=== PATIENT | male | born 1960 | race Caucasian/White ===

== ENCOUNTER → 2020-10-06 12:59 | Outpatient (CLI) | payer OTHER, SELFPAY ==
--- NOTE | 2020-10-06 13:06 | DI.CT.S_ITS ---
PROCEDURE: CT ABDOMEN PELVIS W CON INDICATIONS: Lower abdominal pain, unspecified TECHNIQUE: After the administration of oral and intravenous contrast, axial sections were acquired from the lung bases to the pubic symphysis. Coronal and sagittal reformats were performed. For radiation dose reduction, the following was used: automated exposure control, adjustment of mA and/or kV according to patient size. COMPARISON:None. FINDINGS: Image quality: Excellent. Lung bases: Unremarkable. Heart: No significant findings. ABDOMEN: Liver: Unremarkable. Gallbladder: Is grossly unremarkable Biliary ducts: Unremarkable. Pancreas: Unremarkable. Spleen: Unremarkable. Adrenal Glands: Unremarkable. Kidneys and Ureters: Unremarkable. Stomach and Bowel: Stomach, small bowel loops, and colon are unremarkable. Normal appendix. Peritoneum: No abnormal intraperitoneal fluid. No free air. Ventral Wall: No hernia. Abdominal Nodes: No retroperitoneal or mesenteric adenopathy by size criteria. Vessels: IVC is normal in size. There is moderate atherosclerotic calcification of the aorta iliac vasculature. There is mild ectasia of the infrarenal abdominal aorta measuring 28 mm. PELVIS: Pelvic Organs: Unremarkable. Bladder: Unremarkable. Pelvic Nodes: No enlarged lymph nodes. Miscellaneous: No inguinal hernias are seen. Bones: Unremarkable. IMPRESSION: 1. No acute process. 2. Normal appendix. 3. Mild infrarenal aortic ectasia. Annual sonographic surveillance is recommended. Dictated by: Elen Valera M.D. on 10/06/2020 at 14:24 Approved by: Elen Valera M.D. on 10/06/2020 at 14:25
== END ==
PROVIDERS: Referring Provider Physician Assistant; Visit Provider Physician Assistant
DX: R10.30 Lower abdominal pain, unspecified (principal); R39.15 Urgency of urination; K42.9 Umbilical hernia without obstruction or gangrene; I77.811 Abdominal aortic ectasia
CPT/HCPCS: 74177; Q9967

== ENCOUNTER → 2021-01-18 10:21 | Outpatient (CLI) | payer OTHER, SELFPAY ==
[2021-01-18 11:57] LABS: COVID19 -Nasal RAPID Negative (Negative)
== END ==
PROVIDERS: Visit Provider Nurse Practitioner Family
DX: Z20.822 Contact with and (suspected) exposure to COVID-19 (principal)
CPT/HCPCS: 87635

== ENCOUNTER 2021-01-20 10:24 | Day surgery (SDC) | payer OTHER, SELFPAY ==
[2021-01-20] VITALS (7 sets, daily range): BP systolic 86–146; BP diastolic 42–78; PULSE 56–76; RESP 12–18; TEMP 36.1–36.8; O2SAT 97–98; BMI 29.7
--- NOTE | 2021-01-20 | PATH_ITS ---
[facility] Accession Number: [id number] . 01 Material submitted: . PART A: stomach - GASTRIC ANTRUM BIOPSY PART B: gastrointestinal site - GASTRIC BODY BIOPSY PART C: esophagus - DISTAL ESOPHOGUS BIOPSY PART D: colon - TRANSVERSE COLON BIOPSY . 02 Diagnosis: A. Stomach, Antrum, Biopsy: Antral mucosa with mild chronic gastritis. Negative for Helicobacter by immunohistochemistry. Negative for intestinal metaplasia. Negative for dysplasia and malignancy. . B. Stomach, Body, Biopsy: Body-type mucosa with mild chronic gastritis. Negative for Helicobacter by immunohistochemistry. Negative for intestinal metaplasia. Negative for dysplasia and malignancy. . C. Distal Esophagus, Biopsy: Squamocolumnar junctional mucosa with specialized intestinal metaplasia, consistent with Warren's esophagus. Negative for dysplasia and malignancy. . D. Transverse Colon, Biopsy: Tubular adenoma. [facility] 01/25/2021 1153 Local . 02 Electronically signed: . Ngoc Gay MD, Pathologist NPI- [id number] . 01 Gross description: . Part A: GASTRIC ANTRUM BIOPSY: Received in formalin is 1 fragment(s) of julian, soft tissue measuring 0.3 x 0.3 x 0.3 cm submitted entirely in 1 cassette(s) Part B: GASTRIC BODY BIOPSY: Received in formalin are 2 fragment(s) of julian, soft tissue measuring 0.4 x 0.3 x 0.3 cm to 0.4 x 0.3 x 0.1 cm submitted entirely in 1 cassette(s) Part C: DISTAL ESOPHOGUS BIOPSY: Received in formalin is 1 fragment(s) of julian, soft tissue measuring 0.3 x 0.2 x 0.2 cm submitted entirely in 1 cassette(s) Part D: TRANSVERSE COLON BIOPSY: Received in formalin is 1 fragment(s) of julian, soft tissue measuring 0.3 x 0.2 x 0.2 cm submitted entirely in 1 cassette(s) /[facility] 01/21/2021 [facility]3 Local . 02 Microscopic: . A-B) Immunohistochemical stains were performed on blocks A and B in order to evaluate for Helicobacter organisms and are both negative. The control stain showed appropriate reactivity. . * This test was developed and its performance characteristics determined by [facility]. It has not been cleared or approved by the U.S. Food and Drug Administration. The FDA has determined that such clearance or approval is not necessary. This test is used for clinical purposes. It should not be regarded as investigational or for research. . 02 Pathologist provided ICD-10: K22.70, D12.3 . 02 CPT . 520870, 188174, 149036, 597240, P68978 Performed at: 01 [facility] Cytology [address] [address], [place], [place] [id number] MD Wong Baca MD Phone: [phone] Performed at: 02 [facility] [place] Miguel [address] [place] [id number] MD Ngoc aGy MD Phone: [phone]
[2021-01-20] MEDS: SODIUM CHLORIDE 0.9% 1,000 ML 84 ML IV (10:31)
--- NOTE | 2021-01-20 11:30 | PM.HP.1 ---
History of Present Illness History of Present Illness Date Patient Seen: 01/20/21 Time Patient Seen: 11:30 Chief complaint: SDC Narrative: I reviewed my recent H and P from December 07 no significant changes. Patient is back on his lansoprazole but stopped that a couple of days prior to today's procedure. Patient History Medical History Chronic sinusitis Frequency of micturition GERD (gastroesophageal reflux disease) Pure hypercholesterolemia Umbilical hernia Surgical History History of quadruple bypass Family & Social History Social History: household members significant other Tobacco & Substance use: Smoking Status Current every day smoker alcohol intake current alcohol intake frequency a few times a month Substance Use Type does not use Meds Home Medications and Allergies Home Medications Medication Instructions Recorded Confirmed Type aspirin 81 mg tablet,delayed 81 mg PO QDAY #0 08/14/12 01/20/21 History release lansoprazole 30 mg capsule,delayed 30 mg PO QDAY #0 08/14/12 12/10/20 History release Allergies Allergy/AdvReac Type Severity Reaction Status Date / Time No Known Drug Allergies Allergy Verified 12/10/20 13:27 Review of Systems Review of Systems ROS: Yes All systems reviewed with the patient and are negative except as otherwise documented Exam Vital Signs (past 8 hours): - 01/20/21 10:38 Temperature 98.2 F Pulse Rate 76 Respiratory Rate 18 Blood Pressure 146/78 H Pulse Oximetry 98 Oxygen Delivery Method Room Air Const General: cooperative and comfortable Orientation: alert HENMT Head: normocephalic Ears: external ears normal Nose: external nose normal Face and sinus: normal facial exam Mouth: oral mucosae normal Eyes General: appearance normal, both eyes and all related structures Neck Neck: normal visual inspection Chest Chest: normal inspection of the chest Resp Effort & Inspection: normal respiratory effort Cardio Rate: regular rate GI Inspection: normal to inspection Skin General: no rashes or lesions noted and No jaundice Neuro General: patient alert and moves all extremities Cognition: normal cognition Speech: speech normal Extrem General: no pedal edema Psych Appearance: grossly normal Assessment & Plan Assessment & Plan narrative: Longstanding GERD. Indicated for colon cancer screening. EGD and colonoscopy are planned for today. Time Spent With Patient Critical Care time: I spent a total of [] minutes of critical care time on this patient's care today; this time is exclusive of procedural time.
--- NOTE | 2021-01-20 11:33 | PM.PREOP ---
Pre-operative Note COVID-19 COVID-19 status: Negative Result date/Date tested (Pos, Neg/Pending): 01/18/21 Interval Note History & Physical reviewed/Exam performed by Physician: Yes Changes to H&P: No ASA Class (for procedural sedation): II
--- NOTE | 2021-01-20 12:30 | P.OP.ENDO_ITS ---
Operative Date/Time/Diagnoses Date of procedure: 01/20/21 Time of procedure: 12:30 Pre-op diagnosis: Chronic GERD and indication for colon cancer screening. Post-op diagnosis: same Procedure & Clinicians Study performed: EGD with biopsies and colonoscopy with cold forceps polypectomy Same procedure as scheduled: Yes Indications: Chronic GERD and indicated for colon cancer screening. Surgeon: Tobias Machado Procedure Notes SCOAP/Timeout: Done Procedure in detail: After the risks and benefits were explained, written and verbal informed consent was obtained. The patient was brought into the procedure room and placed into the left lateral decubitus position. See nurse production administrator notes. The scope was introduced into the mouth through the bite block and advanced under direct visualization to the 2nd portion of the duodenum. The scope was slowly withdrawn carefully examining the mucosa for any defects or lesions. Retroflexed views were accomplished in the stomach. The stomach was decompressed, the scope was then removed from the patient who tolerated the procedure well. The patient was then turned around. Digital rectal examination was accomplished. The scope was introduced into the patient and advanced under direct visualization to the cecum as identified by the appendiceal orifice and ileocecal valve. The scope was slowly withdrawn to carefully examine the mucosa for any defects or lesions. Comprehensive imaging was accomplished throughout the rectum including the dentate line. The colon was decompressed, the scope was then removed from the patient who tolerated the procedure well. Bowel prep adequate Adult colonoscope Scope withdrawal time: 9 minutes Sedation minutes: 30 Complications: none Impression: 1. Duodenum: This appeared visually normal from the bulb through to the 2nd portion. 2. Stomach: There was some streaky erythema in the antrum and biopsy was acquired for exclusion of Helicobacter pylori or other pathology. Otherwise throughout the body and fundus of the stomach was a diffuse macro nodular gastropathy. No sinister mass lesions or significant pathology appreciated. Random gastric body biopsies were also acquired for histopathologic analysis. Retroflexed views of the LES were otherwise unremarkable. 3. Esophagus: The squamocolumnar junction seemed to extend up into the tubular esophagus from the GE junction in the 1:00 a.m. location. If this is a segment of Warren's it would be classified as C 0 M 1 by the [place]. Biopsy was acquired from the tongue of possible Warren's. There was no endoscopic suggestion of active esophagitis. The remainder of the esophagus was unremarkable. The GE junction was at approximately 41 cm from the incisors. 3. Colon: There was a diminutive 4 mm polyp in the transverse colon removed with cold forceps. There were some scattered diverticula in the left colon. Otherwise no significant mucosal anomaly was appreciated from the rectum through to the cecum. Patient had grade 1 to grade 2 internal nonbleeding nonthrombosed hemorrhoids. Endoscopic diagnosis 1. Gastropathy 2. 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 Diminutive colon polyp 4. Diverticulosis 5. Grade 1 to grade 2 internal hemorrhoids Post-procedure Recommendations: Colonscopy in 5 years Plan for aftercare: 1. Await histopathology 2. Continue anti-reflux therapy 3. If Warren's is identified then repeat EGD will be suggested for 1 year. 4. Repeat colonoscopy in 5 years if the polyp is confirmed adenomatous. Disposition: PACU
== END 2021-01-20 13:30 | disposition home or self-care (01) ==
PROVIDERS: Referring Provider Internal Medicine Gastroenterology; Visit Provider Internal Medicine Gastroenterology
PROC: 0DJ08ZZ Inspection of Upper Intestinal Tract, Via Natural or Artificial Opening Endoscopic (ICD-10-PCS; CPT 43235; principal; 2021-01-20 11:30)
PROC: 0DJD8ZZ Inspection of Lower Intestinal Tract, Via Natural or Artificial Opening Endoscopic (ICD-10-PCS; CPT 45378; 2021-01-20 11:30)
DX: Z12.11 Encounter for screening for malignant neoplasm of colon (principal); K64.1 Second degree hemorrhoids; K21.9 Gastro-esophageal reflux disease without esophagitis; Z80.0 Family history of malignant neoplasm of digestive organs; F17.210 Nicotine dependence, cigarettes, uncomplicated; E78.00 Pure hypercholesterolemia, unspecified; Z95.1 Presence of aortocoronary bypass graft; K29.50 Unspecified chronic gastritis without bleeding; D12.3 Benign neoplasm of transverse colon
CPT/HCPCS: 45380; 43239

== ENCOUNTER → 2022-02-18 11:34 | Outpatient (CLI) | payer OTHER, SELFPAY ==
--- NOTE | 2022-02-18 | DI.CT.S_ITS ---
PROCEDURE: CT SINUS SCREEN WO CON INDICATIONS: Chronic pansinusitis TECHNIQUE: Noncontrast 3.0 mm axial images acquired from the frontal sinuses to the mid-sella, with coronal and sagittal reformats. For radiation dose reduction, the following was used: automated exposure control, adjustment of mA and/or kV according to patient size. COMPARISON: Outside Film, CT, CT SINUS WITHOUT CONTRAST, 07/06/2017, 15:06. FINDINGS: Image quality: Excellent. Maxillary Sinuses: No bony remodeling or destruction. There is a mild septation seen involving the superior aspect of the right maxillary sinus. Sinuses are clear. Ethmoid Air Cells: No bony remodeling or destruction. Sinuses are clear. Sphenoid Sinuses: No bony remodeling or destruction. Sinuses are clear. Frontal Sinuses: No bony remodeling or destruction. Sinuses are clear. Ostiomeatal Complexes: Ostiomeatal complexes are patent, yet they are constitutionally narrowed. No definite Adriel cells. Miscellaneous: Visualized intra-orbital contents are normal. No betty bullosa or paradoxical turbinate curvature. There is mild rightward nasal septal deviation. IMPRESSION: No significant active paranasal sinus disease is seen. This study is clearly improved compared to the outside 2018 examination. Constitutionally narrowed ostiomeatal complexes can be seen. There is mild rightward nasal septal deviation. Dictated by: Delroy Carr M.D. on 02/18/2022 at 12:23 Approved by: Delroy Carr M.D. on 02/18/2022 at 12:24
== END ==
PROVIDERS: PCP Family Medicine; Referring Provider Otolaryngology; Visit Provider Otolaryngology
DX: J32.4 Chronic pansinusitis (principal); J34.89 Other specified disorders of nose and nasal sinuses; J34.2 Deviated nasal septum
CPT/HCPCS: 70486

== ENCOUNTER → 2022-09-18 13:11 | Outpatient (CLI) | payer OTHER, MEDICAID, SELFPAY | PROVIDERS: PCP Family Medicine; Visit Provider Nurse Practitioner Family | DX: J02.9 Acute pharyngitis, unspecified (principal) | CPT/HCPCS: 87070 ==

== ENCOUNTER → 2023-09-08 07:45 | Outpatient (CLI) | payer OTHER, SELFPAY ==
--- NOTE | 2023-09-08 07:49 | DI.US.S_ITS ---
PROCEDURE: US ABD AORTA ANEURYSM SCREEN INDICATIONS: Aneurysm of iliac artery TECHNIQUE: Real time scanning was performed of the aorta and iliac arteries, with image documentation. COMPARISON: None. FINDINGS: Aorta: Proximal aortic diameter measures 3.0 x 3.1 cm. Mid-aorta measures 2.5 x 2.5 cm. Distal aortic diameter is 2.3 x 2.3 cm. Iliac arteries: Right common iliac artery measures 1.1 x 1.1 cm. Left common iliac artery measures 1.4 x 1.4 cm. 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 Recommend follow-up as below. Minimal ectasia of the left common iliac artery. AAA imaging followup intervals: AAA defined as 3.0 cm or more luminal diameter. * 2.5-2.9 cm (ectasia): 5 year followup. * 3.0-3.4 cm: 3 year followup. * 3.5-3.9 cm: 3 year followup. * 4.0-4.4 cm: 1 year followup. * 4.5-4.9 cm: 6 month followup. Consider surgery/endovascular Rx. * 5.0-5.5 cm: 3-6 month followup. Consider surgery/endovascular Rx. Dictated by: Sabrina Duggan M.D. on 09/12/2023 at 12:49 Approved by: Sabrina Duggan M.D. on 09/12/2023 at 12:50
== END ==
LOC: US 07:46
PROVIDERS: PCP Family Medicine; Referring Provider Family Medicine; Visit Provider Family Medicine
DX: I71.20 Thoracic aortic aneurysm, without rupture, unspecified (principal); I72.3 Aneurysm of iliac artery
CPT/HCPCS: 76706; 76882